=== PATIENT | female | born 1945 | race Caucasian/White ===

== ENCOUNTER 2022-02-04 11:23 | Emergency (ER) | payer MEDICARE, OTHER ==
[~2022-02-04] VITALS: Ht 170.2 cm; Wt 101.2 kg
[2022-02-04] MEDS ORDERED: ROCURONIUM BROMIDE 50 MG/5 ML VIAL IV ONE (11:24)
[2022-02-04] MEDS ORDERED: ETOMIDATE 20 MG/10 ML VIAL IV ONE (11:24)
--- NOTE | 2022-02-04 11:30 | NUR ---
Patient arrived with IV access.
--- NOTE | 2022-02-04 11:30 | NUR ---
Patient brougt in by [facility], according to reports physician and medical staff at [facility] [place] [facility] called 911 after noting that patient was coughing blood with saturation in the low 80's. sbp 126/72, HR of 110 sinus tachy. Patient was accompanied by physician who performed right lung biopsy. Patient immediately connected to monitor, and placed on oxygen. Bleeding continue and saturation remained low.
[2022-02-04] MEDS ORDERED: LORAZEPAM 2 MG/1 ML VIAL ONE (11:33)
--- NOTE | 2022-02-04 11:35 | NUR ---
Patient remained short of breath with low saturation stating "I'm feeling short of breath please do something" patient was able to consent for intubation and blood transfusion. Intubation started by md. at 1140, patient received a total of 30 mg of etomidate and 100 mg of Rocuronium. Patient successfully intubated with capnography verification as well as auscultation. patient continue with heavy bleeding and saturation remains low. Patient cold clammy and heart rate went down to the 50's. sbp 102/66. weak pulses. Due to low heart rate and barely palpable pulses juan jose blue was called. at 1150. Patient received a total of 9 doses of epinephrine, atropine, 1 amp of sodium bicarb, atropine 1mg and during code patient started on levophed, pt. also received 1/2 pint of blood. Patient was prounced by Md at 1233.
--- NOTE | 2022-02-04 11:40 | NUR ---
Arrived in ER with patient complaining of shortness of breath at 1140. Assisted ER MD with intubation. Patient was intubated with 7.5 ETT @ 21 at the lip. Successfully intubated with capnograpy color change and auscultation. Patient continued with low HR and weak pulse. Code blue initiated, compressions and BVM with 100% Fio2 started at 1150. Patient was pronounced by ER MD at 1233.
[2022-02-04] MEDS ORDERED: SODIUM BICARBONATE 8.4% 50 MEQ/50 ML DISP.SYRIN IV ONE (11:45)
[2022-02-04] MEDS ORDERED: ATROPINE SULFATE 1 MG/10 ML DISP.SYRIN ONE (11:45)
[2022-02-04] MEDS ORDERED: EPINEPHRINE 1:10,000 1 MG/10 ML DISP.SYRIN ONE (11:45)
[2022-02-04] MEDS ORDERED: NOREPINEPHRINE BITARTRATE 8 MG in IV DEXTROSE 5% 500 ML IV PRN (12:00)
--- NOTE | 2022-02-04 12:33 | NUR ---
as pronounced by Dr. Medellin patient see his notes.
--- NOTE | 2022-02-04 12:40 | NUR ---
Patient's family in and they were updated by physician.
--- NOTE | 2022-02-04 12:40 | NUR ---
Called [facility] and at this spoke with Sylvia manufacturer representative case # [id number]. As stated patient is a candidate for donation and they will contact next of kin. And to expect a call within an hour.
[2022-02-04] MEDS ORDERED: FUROSEMIDE (12:46)
[2022-02-04] MEDS ORDERED: ASPIRIN (12:46)
[2022-02-04] MEDS ORDERED: LOSARTAN (12:46)
[2022-02-04] MEDS ORDERED: LEVOTHYROXINE (12:46)
[2022-02-04] MEDS ORDERED: CARVEDILOL (12:46)
[2022-02-04] MEDS ORDERED: [UNRECOGNIZED DRUG - OTHER] (12:46)
--- NOTE | 2022-02-04 13:05 | NUR ---
SW consult requested in the ER for grief resources. Patient's son, daughter in law, and daughter were in the ER and SW provided the family with resources for directors, mortuaries, and a support on the process. SW provided emotional support and validation. SW verbalized her availability for further support if needed.
--- NOTE | 2022-02-04 13:10 | NUR ---
Pt's family at bedside at this time no documentation signed as stated they will make proper arrangements and when ready they will called unit or nursing office. Phones provided. Addendum: 02/04/22 at 1359 by RYANN Pt's son and next of kin is Lg Liz home address is [address] [place] [id number].
--- NOTE | 2022-02-04 14:20 | NUR ---
A call from [facility] and at this time I was informed by Tracy they're still proceeding for cornea donation but if needed it body can be [facility].
--- NOTE | 2022-02-04 15:10 | NUR ---
Post mortem care provided pt. body taken down to the morgue by security.
--- NOTE | 2022-02-10 10:54 | NUR ---
LATE NOTE: for 02/04/22 verbal order for 2mg lorazepam given by RATNA GUIDRY MD Med was administered to pt. prior to intubation, approximately at 1135.
== END 2022-02-04 15:20 ==
LOC: ER 11:23
DX: J95.830 Postprocedural hemorrhage of a respiratory system organ or structure following a respiratory system procedure (principal); I95.9 Hypotension, unspecified; R00.0 Tachycardia, unspecified; C92.90 Myeloid leukemia, unspecified, not having achieved remission; R91.8 Other nonspecific abnormal finding of lung field; I46.9 Cardiac arrest, cause unspecified
CPT/HCPCS: 71045; 31500; 99291; 92950; P9016; J0461; J0171; J3490 ×3; J2060; J7060; C1769; 70030-TC